=== PATIENT | female | born 1985 | race Caucasian/White ===

== ENCOUNTER 2019-10-15 12:29 | Emergency (ER) | payer MEDICAID ==
[2019-10-15] MEDS ORDERED: Ketorolac 60 MG/2 ML SDV IM ONE (13:13)
--- NOTE | 2019-10-15 13:15 | CRLCR ---
Indication: Pain after fall. Technique: Three views of the left hand. Comparison: None Findings: The joint spaces are well maintained. A fracture of the base of the proximal phalanx of the left thumb is identified. This is an avulsion type fracture other slight angulation at the level of the avulsed fracture fragment. No other fractures are identified. Impression: Fracture the base of the proximal phalanx of the left thumb. Dictated by Malena Graham MD @ Oct 15 2019 1:14PM Signed by Dr. Malena Graham @ Oct 15 2019 1:14PM
--- NOTE | 2019-10-15 13:16 | EDM.PDOC ---
ED HPI GENERAL MEDICAL PROBLEM - General Chief Complaint: Upper Extremity Injury/Pain Stated Complaint: LEFT THUMB Time Seen by Provider: 10/15/19 13:11 Source of Information: Reports: Patient, Family, RN Notes Reviewed History Limitations: Reports: No Limitations - History of Present Illness INITIAL COMMENTS - FREE TEXT/NARRATIVE: 33-year-old female presents emergency department a complaint of left thumb pain. 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: Musculoskeletal History: Reports: Arthritis, Back Pain, Chronic - Infectious Disease History Infectious Disease History: Reports: Chicken Pox - Past Surgical History HEENT Surgical History: Reports: Tonsillectomy Social & Family History - Family History Family Medical History: Noncontributory - Tobacco Use Smoking Status *Q: Never Smoker - Caffeine Use Caffeine Use: Reports: Coffee Other Caffeine Use: 1 cup a day Review of Systems - Review of Systems Review Of Systems: See Below Musculoskeletal: Reports: Joint Pain (Thumb pain) Skin: Reports: Bruising Neurological: Reports: No Symptoms ED EXAM, GENERAL - Physical Exam Exam: See Below Free Text/Narrative:: Examination of the thumb I do appreciate some edema some bruising ecchymosis noted at the PIP joint of digit #1 there is limited range of motion secondary to edema and pain she has full range of motion digits 2 through 5 no pain or tenderness at the wrist radial pulses +2 sensation is intact Exam Limited By: No Limitations General Appearance: Alert, WD/WN, No Apparent Distress Course - Vital Signs Last Recorded V/S: Last Vital Signs Temp 96.9 F 10/15/19 12:47 Pulse 103 H 10/15/19 12:47 Resp 16 10/15/19 12:47 BP 139/74 10/15/19 12:47 Pulse Ox 98 10/15/19 12:47 - Orders/Labs/Meds Orders: Active Orders 24 hr Category Date Time Status Notify Provider Consults [RC] ASDIRECTED Care 10/15/19 13:21 Ordered Consult to Physician [CONS] Routine Cons 10/15/19 13:20 Ordered Meds: Medications Discontinued Medications Generic Name Dose Route Start Last Admin Trade Name Freq PRN Reason Stop Dose Admin Ketorolac Tromethamine 60 mg 10/15/19 13:13 Toradol IM 10/15/19 13:14 ONETIME ONE Departure - Departure Time of Disposition: 13:23 Disposition: Home, Self-Care 01 Condition: Fair Clinical Impression: Closed fracture of phalanx of thumb Qualifiers: Encounter type: initial encounter Phalanx: proximal Fracture alignment: displaced Laterality: left Qualified Code(s): S62.512A - Displaced fracture of proximal phalanx of left thumb, initial encounter for closed fracture - Discharge Information Instructions: Thumb Fracture Referrals: Diana Kaplan CNM [Primary Care Provider] - Forms: ED Department Discharge Additional Instructions: Use ibuprofen for baseline pain control, use hydrocodone for breakthrough pain a consultation with Dr. Morales from orthopedics has been set up expect that to happen next week they will call you for an appointment time Sepsis Event Note - Evaluation Sepsis Screening Result: No Definite Risk - Focused Exam Vital Signs: Vital Signs Temp Pulse Resp BP Pulse Ox 10/15/19 12:47 96.9 F 103 H 16 139/74 98 10/15/19 12:41 96.9 F 103 H 16 139/74 98 Date Exam was Performed: 10/15/19 Time Exam was Performed: 13:21 - My Orders Last 24 Hours: My Active Orders 10/15/19 13:20 Consult to Physician [CONS] Routine 10/15/19 13:21 Notify Provider Consults [RC] ASDIRECTED - Assessment/Plan Last 24 Hours: My Active Orders 10/15/19 13:20 Consult to Physician [CONS] Routine 10/15/19 13:21 Notify Provider Consults [RC] ASDIRECTED Plan: Assessment Acuity = acute Site and laterality = closed proximal phalangeal fracture base digit #1 left hand Etiology = secondary to trauma Manifestations = pain Location of injury = Home Lab values = x-ray describes a fracture above Plan Consult set up with Dr. Morales for next week, hydrocodone 5/325 1 tab p.o. 3 times daily PRN total #20 provided for pain control This note was dictated using [employer] voice recognition software please call with any questions on syntax or grammar.
== END 2019-10-15 13:41 | disposition home or self-care (01) ==
LOC: JP.ED 12:29
DX: S62.512A Displaced fracture of proximal phalanx of left thumb, initial encounter for closed fracture (principal); W19.XXXA Unspecified fall, initial encounter
CPT/HCPCS: 29125; 73130; 96372; 99283; J1885

== ENCOUNTER 2020-03-28 16:32 | Emergency (ER) | payer MEDICAID ==
--- NOTE | 2020-03-28 17:28 | EDM.PDOC ---
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 Pain radiates down her left leg which she describes as being in a band. She has had difficulty ambulating since. She did try to take ibuprofen 800 mg orally x1 with no effect on her pain. She has pre-existing disc disease which was diagnosed at the [facility]. SHe has never had sciatica that she knows of. Does not relate inability to urinate. There is no saddle numbness. She has no one-sided weakness. 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 Lower Back Pain Score (Numeric/FACES): 8 - Related Data Allergies Allergy/AdvReac Type Severity Reaction Status Date / Time No Known Allergies Allergy Verified 03/28/20 17:04 Home Meds: Home Meds Ibuprofen [Motrin] 800 mg PO QID PRN 03/28/20 [History] Meclizine [Antivert] 25 mg PO Q6H PRN 03/28/20 [History] Past Medical History Cardiovascular History: Reports: None Respiratory History: Reports: None Gastrointestinal History: Reports: None Genitourinary History: Reports: None 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: Musculoskeletal History: Reports: Arthritis, Back Pain, Chronic, Fracture, Other (See Below) Other Musculoskeletal History: proximal phalanx LT thumb Neurological History: Reports: None Psychiatric History: Reports: Anxiety, Depression, Panic Attack, PTSD Endocrine/Metabolic History: Reports: None Hematologic History: Reports: None Immunologic History: Reports: None Oncologic (Cancer) History: Reports: None Dermatologic History: Reports: None - Infectious Disease History Infectious Disease History: Reports: Chicken Pox - Past Surgical History Head Surgeries/Procedures: Reports: None HEENT Surgical History: Reports: Tonsillectomy Musculoskeletal Surgical History: Reports: None Dermatological Surgical History: Reports: None Social & Family History - Family History Family Medical History: Noncontributory - Tobacco Use Smoking Status *Q: Never Smoker Second Hand Smoke Exposure: No - Caffeine Use Caffeine Use: Reports: Soda Other Caffeine Use: 1 cup a day - Recreational Drug Use Recreational Drug Use: No ED ROS GENERAL - Review of Systems Review Of Systems: See Below Constitutional: Denies: Fever Respiratory: Reports: No Symptoms GI/Abdominal: Denies: Abdominal Pain : Denies: Dysuria Musculoskeletal: Reports: Back Pain (Radiates down her left leg) Neurological: Denies: Numbness, Paresthesia, Tingling, Trouble Speaking Psychiatric: Reports: No Symptoms ED EXAM, UPPER BACK/NECK PAIN - Physical Exam Exam: See Below Exam Limited By: No Limitations General Appearance: Alert Ears Exam: Normal External Exam Head Exam: Atraumatic, Normocephalic Neck Exam: Non-Tender, Full Range of Motion GI/Abdominal: Soft, Non-Tender, No Mass Back Exam: Normal Inspection. No: CVA Tenderness (R), CVA Tenderness (L), Muscle Spasm, Vertebral Tenderness Extremities: Normal Inspection, Normal Range of Motion, No Pedal Edema, Leg Pain (Upper leg pain. She is able to extend both knees from 90 degrees to 180 degrees. She has excellent foot dorsiflexion bilaterally.) Neurologic: No Motor/Sensory Deficits, Normal Mood/Affect. No: Motor Weakness, Sensory Deficit Course - Vital Signs Text/Narrative:: Administered a single dose of Granby 5/325 and cyclobenzaprine 10 mg here in the emergency department. She is planning on following up with the [facility]. I have told her that given her normal palpation of her vertebral spine and no history of trauma there is no point in doing x-ray today but that in the future she may need to have an MRI scan performed to evaluate her vertebral discs Last Recorded V/S: Last Vital Signs Temp 36.2 C 03/28/20 17:11 Pulse 93 03/28/20 17:11 Resp 16 03/28/20 17:11 BP 133/88 03/28/20 17:11 Pulse Ox 98 03/28/20 17:11 - Orders/Labs/Meds Meds: Medications Discontinued Medications Generic Name Dose Route Start Last Admin Trade Name Freq PRN Reason Stop Dose Admin Hydrocodone Bitart/Acetaminophen 1 tab 03/28/20 17:42 03/28/20 17:47 Granby 325-5 Mg PO 03/28/20 17:43 1 tab ONETIME ONE Administration Cyclobenzaprine HCl 10 mg 03/28/20 17:43 03/28/20 17:47 Flexeril PO 03/28/20 17:44 10 mg ONETIME ONE Administration Departure - Departure Time of Disposition: 18:31 Disposition: Home, Self-Care 01 Clinical Impression: Sciatica Qualifiers: Laterality: left Qualified Code(s): M54.32 - Sciatica, left side - Discharge Information Instructions: Sciatica Referrals: Dottie Ramos [employer]IONAL RETAIL SALES MANAGER [Primary Care Provider] - Forms: ED Department Discharge Additional Instructions: For the next 2 to 3 days utilize Granby as prescribed and cyclobenzaprine. Do not utilize acetaminophen with the Granby. You can you also utilize ibuprofen 600 mg orally 3 times a day with food. Follow-up with your [facility] ([facility]). You may need magnetic resonance imaging to assess your intravertebral disks. Sepsis Event Note (ED) - Evaluation Sepsis Screening Result: No Definite Risk - Focused Exam Vital Signs: Vital Signs Temp Pulse Resp BP Pulse Ox 03/28/20 17:11 36.2 C 93 16 133/88 98 03/28/20 17:04 36.2 C 93 16 133/88 98
[2020-03-28] MEDS ORDERED: Acetaminophen/HYDROcodone 325-5 MG Tab PO ONE (17:42)
[2020-03-28] MEDS ORDERED: Cyclobenzaprine 10 MG Tab PO ONE (17:43)
== END 2020-03-28 18:38 | disposition home or self-care (01) ==
LOC: JP.ED 16:32
DX: M54.42 Lumbago with sciatica, left side (principal)
CPT/HCPCS: 99283; A9270

== ENCOUNTER 2020-07-02 17:03 | Emergency (ER) | payer OTHER, MEDICAID ==
[2020-07-02] MEDS ORDERED: LORazepam 1 MG Tab PO ONE (18:11)
[2020-07-02] MEDS ORDERED: Ketorolac 60 MG/2 ML SDV IM ONE (18:11)
--- NOTE | 2020-07-02 18:15 | EDM.PDOC ---
ED HPI GENERAL MEDICAL PROBLEM - General Chief Complaint: Back Pain or Injury Stated Complaint: BACK PAIN Time Seen by Provider: 07/02/20 18:04 Source of Information: Reports: Patient, RN Notes Reviewed History Limitations: Reports: No Limitations - History of Present Illness INITIAL COMMENTS - FREE TEXT/NARRATIVE: +34-year-old female presents emergency department a complaint of low back pain, she has a history of back troubles initially injured herself over 10 years ago, did have an exacerbation of her back pain earlier this summer and then today she was vacuuming and bent over sudden onset of back pain quite severe she had difficulty ambulating. 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: Musculoskeletal History: Reports: Arthritis, Back Pain, Chronic, Fracture, Other (See Below) Other Musculoskeletal History: proximal phalanx LT thumb Psychiatric History: Reports: Anxiety, Depression, Panic Attack, PTSD - Infectious Disease History Infectious Disease History: Reports: Chicken Pox - Past Surgical History HEENT Surgical History: Reports: Tonsillectomy Social & Family History - Family History Family Medical History: Noncontributory - Tobacco Use Smoking Status *Q: Never Smoker - Caffeine Use Caffeine Use: Reports: None Other Caffeine Use: 1 cup a day - Recreational Drug Use Recreational Drug Use: No ED ROS GENERAL - Review of Systems Review Of Systems: See Below Constitutional: Denies: Fever, Chills HEENT: Reports: No Symptoms Respiratory: Reports: No Symptoms Cardiovascular: Reports: No Symptoms GI/Abdominal: Reports: No Symptoms Musculoskeletal: Reports: Back Pain Neurological: Reports: Other (Pain shoots down the right leg) ED EXAM,LOWER BACK PAIN/INJURY - Physical Exam Exam: See Below Exam Limited By: No Limitations General Appearance: Alert, Mild Distress Respiratory/Chest: No Respiratory Distress Back Exam: Normal Inspection, Decreased Range of Motion, Muscle Spasm, Paraspinal Tenderness. No: CVA Tenderness (R), CVA Tenderness (L), Vertebral Tenderness Extremities: Normal Inspection, Normal Range of Motion, No Pedal Edema Course - Vital Signs Last Recorded V/S: Last Vital Signs Temp 98.4 F 07/02/20 17:46 Pulse 96 07/02/20 17:46 Resp 16 07/02/20 17:46 BP 97/55 L 07/02/20 17:46 Pulse Ox 97 07/02/20 17:46 - Orders/Labs/Meds Meds: Medications Discontinued Medications Generic Name Dose Route Start Last Admin Trade Name Yarelis PRN Reason Stop Dose Admin Hydromorphone HCl 1 mg 07/02/20 18:40 07/02/20 18:49 Dilaudid IM 07/02/20 18:41 1 mg ONETIME ONE Administration Ketorolac Tromethamine 60 mg 07/02/20 18:11 07/02/20 18:22 Toradol IM 07/02/20 18:12 60 mg ONETIME ONE Administration Lorazepam 1 mg 07/02/20 18:11 07/02/20 18:22 Ativan PO 07/02/20 18:12 1 mg ONETIME ONE Administration Departure - Departure Time of Disposition: 18:56 Disposition: Home, Self-Care 01 Condition: Fair Clinical Impression: Low back pain Qualifiers: Chronicity: acute Back pain laterality: left Sciatica presence: with sciatica Sciatica laterality: sciatica of right side Qualified Code(s): M54.41 - Lumbago with sciatica, right side - Discharge Information Instructions: Acute Back Pain, Adult Referrals: Dottie Ramos WASTE DISPOSAL PLANT OPERATOR [Primary Care Provider] - Forms: ED Department Discharge Additional Instructions: Continue to use ibuprofen for baseline pain control use Percocet for breakthrough pain, please follow-up with your primary care in the next 3 to 5 days if not better call return to the emergency department worsening of symptoms Sepsis Event Note (ED) - Evaluation Sepsis Screening Result: No Definite Risk - Focused Exam Vital Signs: Vital Signs Temp Pulse Resp BP Pulse Ox 07/02/20 17:46 98.4 F 96 16 97/55 L 97 07/02/20 17:45 98.4 F 96 16 97/55 L 97 - Assessment/Plan Plan: Assessment Acuity = acute Site and laterality = low back pain exacerbation Etiology = lifting injury Manifestations = none Location of injury = Home Lab values = none Plan Some improvement combination Toradol and hydromorphone in the emergency department prescription written for Percocet 1 tab p.o. 3 times daily PRN total #10 she will follow-up with her primary care in the next couple days if no improvement This note was dictated using [employer] recognition software please call with any questions on syntax or grammar.
[2020-07-02] MEDS ORDERED: HYDROmorphone 1 MG/ML Syringe IM ONE (18:40)
== END 2020-07-02 19:06 | disposition home or self-care (01) ==
LOC: JP.ED 17:03
DX: M54.42 Lumbago with sciatica, left side (principal)
CPT/HCPCS: 96372; 99283; A9270; J1170; J1885

== ENCOUNTER 2021-02-28 09:35 | Day surgery (SDC) | payer MEDICAID, OTHER ==
[~2021-02-28 09:35] MED LIST: Bupivacaine 0.5% 50 ML MDV ONE; Lidocaine 1% with EPINEPHrine 1:100,000 50 ML MDV ONE
[2021-02-28] MEDS ORDERED: Sodium Chloride 0.9% 1,000 ML IV SCH (10:00)
[2021-02-28] MEDS ORDERED: ceFAZolin 2 GM in Premix Bag 1 BAG IV ONE (10:00)
[2021-02-28] MEDS ORDERED: ceFAZolin 2 GM in Sodium Chloride 0.9% 50 ML IV ONE (10:00)
[2021-02-28] MEDS ORDERED: Midazolam 1 MG/ML 2 ML SDV ONE ×2 (10:11→11:30)
[2021-02-28] MEDS ORDERED: fentaNYL 100 MCG/2 ML SDV ONE (10:11)
[2021-02-28] MEDS ORDERED: Propofol 200 MG/20 ML SDV ONE ×2 (10:11→11:34)
[2021-02-28] MEDS ORDERED: Acetaminophen/HYDROcodone 325-5 MG Tab PO ONE (12:56)
--- NOTE | 2021-03-28 07:48 | OR ---
DATE OF PROCEDURE: 02/28/2021 SURGEON: Silverio Mahoney MD PROCEDURE: Excision, lipoma, left posterior arm, 3.2 x 4.2 cm. COMPLICATIONS: None. ORACLE SCM CONSULTANT: None. PREOPERATIVE DIAGNOSIS: Lipoma, left posterior arm. POSTOPERATIVE DIAGNOSIS: Lipoma, left posterior arm. RISKS: Risks, benefits, alternatives, and limitations including, but not limited to infection, bleeding, chronic wounds, chronic pain, and other risks not listed here were explained to the patient, who then wished to proceed. PROCEDURE IN DETAIL: The patient was placed in the supine position. The area of the posterior left arm was identified. A linear incision was made approximately 4 cm in size. This was then carried down with electrocautery to the lipoma, which was able to be expressed out. The base was then transected with electrocautery. The wound was closed with 3-0 Vicryl and 4-0 Vicryl in interrupted running fashion. The patient tolerated the procedure well. Silverio Mahoney MD /[id number]
== END 2021-02-28 13:13 | disposition home or self-care (01) ==
LOC: JP.SDS 09:35
PROVIDERS: ATTEND Surgery
DX: D17.22 Benign lipomatous neoplasm of skin and subcutaneous tissue of left arm (principal)
CPT/HCPCS: 81025; 88304; A9270-GY; J0690; J2250; J2704; J3010; J3490; J7030

== ENCOUNTER 2025-03-10 09:26 | Emergency (ER) | payer OTHER ==
[2025-03-10] MEDS: HYDROmorphone 1 MG/ML Syringe IVPUSH ONE (10:36)
[2025-03-10] MEDS: Ondansetron 4 MG/2 ML SDV IVPUSH ONE (10:36)
[2025-03-10 10:37] LABS: BASOPHILS ABSOLUTE AUTO 0.04 K/uL (0.00-0.10); BASOPHILS PERCENT AUTO 0.4 % (0.1-1.3); EOSINOPHILS ABSOLUTE AUTO 0.05 K/uL (0.00-0.40); EOSINOPHILS PERCENT AUTO 0.4 % (0.0-5.4); HEMATOCRIT 35.3 % (34.3-46.0); HEMOGLOBIN 11.7 g/dL (11.2-15.5); IMMATURE GRAN ABSOLUTE AUTO 0.06 K/uL (0.00-0.23); IMMATURE GRAN PERCENT AUTO 0.5 % (0.0-0.7); LYMPHOCYTES ABSOLUTE AUTO 1.34 K/uL (0.8-3.3); MEAN CORPUSCULAR HEMOGLOBIN 26.8 pg (31.6-35.5); MEAN CORPUSCULAR HGB CONC 33.1 g/dL (31.6-35.5); MONOCYTES ABSOLUTE AUTO 0.42 K/uL (0.20-0.90); MONOCYTES PERCENT AUTO 3.8 % (3.3-12.6); NEUTROPHILS ABSOLUTE AUTO 9.22 K/uL (1.0-7.6); NEUTROPHILS PERCENT AUTO 82.9 % (40.0-78.1); PLATELET COUNT,PLT 270 K/uL (130-375); RED BLOOD CELL COUNT 4.36 M/uL (3.77-5.24); WHITE BLOOD CELL COUNT,WBC 11.1 K/uL (3.2-11.0)
[2025-03-10] MEDS: Sodium Chloride 0.9% 1,000 ML IV ONE (10:39)
[2025-03-10] MEDS: Sucralfate 1 GM Tab PO ONE (10:39)
[2025-03-10 10:58] LABS: ALANINE AMINOTRANSFERASE,ALT 67 U/L (12-78); ALBUMIN 3.5 g/dL (3.4-5.0); ALKALINE PHOSPHATASE 121 U/L (46-116); ASPARTATE AMNIOTRANSFERASE,AST 39 U/L (15-37); BILIRUBIN TOTAL 0.4 mg/dL (0.2-1.0); BLOOD UREA NITROGEN,BUN 11 mg/dL (7-18); CALCIUM 9.2 mg/dL (8.5-10.1); CARBON DIOXIDE,CO2 25 mmol/L (21-32); CHLORIDE,CL 103 mmol/L (100-108); CREATININE 0.7 mg/dL (0.6-1.0); EST CRCL DRUG DOSING (CG) 103.01 mL/min; ESTIMATED GFR 114 mL/min (>60); GLUCOSE RANDOM 108 mg/dL (74-106); POTASSIUM,K 3.7 mmol/L (3.6-5.2); PROTEIN TOTAL,TP 6.9 g/dL (6.4-8.2); SODIUM,NA 136 mmol/L (140-148)
[2025-03-10 11:06] LABS: ANION GAP 11.7 mmol/L (5.0-14.0)
[2025-03-10 11:55] LABS: APPEARANCE,URINE SLIGHTLY CLOUDY (CLEAR); BILIRUBIN,URINE NEGATIVE (NEGATIVE); COLOR,URINE YELLOW (YELLOW); GLUCOSE,URINE NEGATIVE (NEGATIVE); KETONES,URINE TRACE mg/dL (NEGATIVE); LEUKOCYTE ESTERASE,URINE NEGATIVE (NEGATIVE); NITRITE,URINE NEGATIVE (NEGATIVE); OCCULT BLOOD,URINE NEGATIVE (NEGATIVE); PROTEIN,URINE 30 mg/dL (NEGATIVE); UROBILINOGEN,URINE 0.2 EU/dL (0.2-1.0)
[2025-03-10 12:02] LABS: AMORPHOUS SEDIMENT,URINE FEW; BACTERIA,URINE RARE; EPITHELIAL CELLS,URINE FEW; MUCUS,URINE MANY; RBC,URINE 0-5 (0-5); WBC,URINE 0-5 (0-5)
== END 2025-03-10 13:20 | disposition home or self-care (01) ==
LOC: JP.ED 09:26
DX: K29.00 Acute gastritis without bleeding (principal); Z79.899 Other long term (current) drug therapy
CPT/HCPCS: 36415; 80053; 80307; 81001; 81025; 83690; 85025; 96361; 96374; 96375; 99284; A9270; J1171; J2405; J7030